=== PATIENT | female | born 1930 | race Caucasian/White ===

== ENCOUNTER 2017-04-09 10:41 | Emergency (ER) | payer OTHER ==
[2017-04-09 11:01] VITALS: BP 146/80; PULSE 68; RESP 18; TEMP 98.4; O2SAT 94
[2017-04-09] MEDS ORDERED: HYDROCODONE/APAP 5/325 TAB PO ONE (11:33)
--- NOTE | 2017-04-09 12:15 | EDPHY ---
H & P Time Seen by Provider: 04/09/17 12:12 HPI/ROS: HPI: This is the pleasant 6-year-old female who presents with Chief Complaint: Left rib pain Location: Left lateral rib Quality: Pain Duration: Since this morning, 1-3 hours Signs and Symptoms: No shortness of breath, no chest pain, no wheezing, no loss of consciousness, no head injury, no dizziness Timing: Sudden, worse with lying on the left side as well as taking a deep breath Severity: Moderate Context: This is a pleasant 86-year-old female who uses a walker to aid ambulation. She states that she tripped and fell directly onto her left side onto the floor. Denies hitting her head. Denies loss of consciousness. She reports that she leaving her insulin glucose meter and started to fall out of her hand, so she shifted her weight and lost her balance which essentially caused her fall. Modifying Factors: Comment: ROS: Eyes: No blurred vision Respiratory: No shortness of breath, no cough Cardiovascular: No chest pain Gastrointestinal: No nausea, no vomiting no diarrhea Genitourinary: No dysuria Extremities: No myalgias Neurologic: No weakness, no numbness Skin: No rashes Hematologic: No bruising, no bleeding MEDICAL/SURGICAL HISTORY: Hypertension, macular degeneration, diabetes mellitus. Social History: Retired. Smoking Status: Never smoked Physical Exam: CONSTITUTIONAL: Pleasant elderly white female, awake and alert, no obvious distress HEENT: Atraumatic and normocephalic, PERRL, EOMI. Tympanic membranes clear. . Oropharynx clear, no exudate and moist pink mucosa. Airway patent. No lymphadenopathy. No meningismus. Cardiovascular: Normal S1/S2, regular rate, regular rhythm, without murmur rub or gallop. PULMONARY/CHEST: Symmetrical and left lateral and posterior lower ribs tenderness with palpation; no ecchymosis; no crepitus. Clear to auscultation bilaterally. Good air movement. No accessory muscle usage. Able to take a deep inspiration with minimal pain. ABDOMEN: Soft, nondistended, nontender, no rebound, no guarding, no peritoneal signs, no masses or organomegaly. No CVAT. No ecchymosis. EXTREMITIES: 2/2 pulses, no deformities, no clubbing, no cyanosis or edema. NEUROLOGICAL: no focal neuro deficits. GCS 15. SKIN: Warm and dry, no erythema. no rash. Good capillary refill. Constitutional: Initial Vital Signs Temperature (C) 36.9 C 04/09/17 10:45 Heart Rate 68 04/09/17 10:45 Respiratory Rate 18 04/09/17 10:45 Blood Pressure 146/80 H 04/09/17 10:45 O2 Sat (%) 94 04/09/17 10:45 O2 Delivery Mode Room Air Allergies/Adverse Reactions: No Known Allergies Allergy (Verified 04/09/17 11:01) Home Medications: Medication Instructions Recorded Chlorthalidone [Chlorthalidone 25 25 mg PO 04/09/17 mg (*)] Insulin Regular Human [novoLIN R] 0 unit SQ 04/09/17 Lidocaine 5% [Lidoderm 5% Patch 1 ea TD DAILY PRN #7 patch 04/09/17 (*)] Losartan Potassium [Cozaar 50 mg 100 mg PO 04/09/17 (*)] NPH, HUMAN INSULIN ISOPHANE 100 unit SQ 04/09/17 [NOVOLIN N] Nifedical Xl 04/09/17 oxyCODONE/APAP 5/325 [Percocet 1 - 2 tab PO Q4H PRN #12 tab 04/09/17 5/325 (*)] Medical Decision Making - Diagnostics Imaging Results: Imaging Impressions Ribs w/Chest X-Ray 04/09/17 11:33 Impression: 1. Negative. No discernible acute rib fracture. 2. Old healed minimally deformed left fifth and sixth rib fractures. ED Course/Re-evaluation: Chest x-ray as well as left rib x-ray obtained, oral medication given Fall accidental; mechanical in nature Given [place] with moderate relief of pain. No hypoxia noted upon arrival. No respiratory distress. X-ray my read via PACs does not show any acute rib fracture. Radiology read does show old anterior left 5th and 6th rib fractures that every healed with minimal deformity. No pneumothorax, opacity or effusion. Discussed with daughter and patient obtaining a CT chest as more sensitive for rib fractures. They have politely declined as patient is feeling better and will have close follow-up with primary care. Patient lives with daughter her closely supervised and understands that she is a fall risk as this is a chronic problem. Patient request both lighted derm patch as well as [place] for unrelieved pain. Differential Diagnosis: Fall in the elderly including but not limited to intracranial injury, long bone and pelvic bone fracture, spinal injury, and intrathoracic injury. - Data Points Medications Given: Discontinued Medications Hydrocodone Bitart/Acetaminophen ([place] 5/325) 1 tab PO EDNOW ONE Stop: 04/09/17 11:34 Last Admin: 04/09/17 11:37 Dose: 1 tab Departure - Departure Disposition: Home, Routine, Self-Care Clinical Impression: Contusion of rib on left side Qualifiers: Encounter type: initial encounter Qualified Code(s): S20.212A - Contusion of left front wall of thorax, initial encounter Condition: Good Instructions: Rib Contusion (ED), Rib Fracture (ED) Additional Instructions: X-ray today does not show acute rib fracture. If pain persist please follow-up with primary care provider as a repeat x-ray or CT chest scan may need to be ordered. Referrals: MIESHA VELAZQUEZ [Other] - As per Instructions [facility],. [Clinic] - 2-3 days, call for appt. Prescriptions: Lidocaine 5% [Lidoderm 5% Patch (*)] 1 ea TD DAILY PRN #7 patch PRN Reason: Pain, Moderate oxyCODONE/APAP 5/325 [Percocet 5/325 (*)] 1 - 2 tab PO Q4H PRN #12 tab PRN Reason: Pain, Severe
== END 2017-04-09 13:04 | disposition home or self-care (01) ==
DX: S20.212A Contusion of left front wall of thorax, initial encounter (principal); I10 Essential (primary) hypertension; E11.9 Type 2 diabetes mellitus without complications; Z79.4 Long term (current) use of insulin; W01.0XXA Fall on same level from slipping, tripping and stumbling without subsequent striking against object, initial encounter

== ENCOUNTER 2018-02-14 10:50 | Emergency (ER) | payer OTHER ==
--- NOTE | 2018-02-14 12:00 | EDPHY ---
HPI/HX/ROS/PE/MDM Narrative: CHIEF COMPLAINT: Fall, back pain into both thighs HPI: The patient is an 87 y/o female who is visiting from [place] with her daughter complaining of progressively worsening back pain radiating into both thighs after a fall last Sunday, 6 days ago. She has a history of a prior lumbar compression fracture, though she's unsure at what level. On Sunday, she was pulling a "shredder machine" and lost her balance falling onto her lower back. Since then she's had localized lower back pain that radiates into the lateral aspect of both thighs. Her back pain is slightly worse on the right side and "goes down into my pelvis too." Pain is aggravated by sitting up and moving. Lifting either leg exacerbates the pain along the lateral sides of her thighs. She took 3 tabs of Advil this morning with minimal relief. Her daughter says she was unable to get out of bed on Sunday, 2 days ago, and had difficulty again yesterday and today so she brought her to the ED for evaluation. The patient denies weakness, paresthesias, urinary symptoms, fever, cough, dyspnea, chest pain, recent illness, or any other trauma. REVIEW OF SYSTEMS: Aside from elements discussed in the HPI, a comprehensive 10-point review of systems was reviewed and is negative. PMH: Diabetes, hypertension, lumbar compression fracture, hearing loss (R ear best with hearing aid), macular degeneration SOCIAL HISTORY: Daughter at bedside. Lives in [place], but visiting here for the month, drove out over the weekend. PHYSICAL EXAM: General:Patient is alert, in no acute distress. ENT:Eyes are normal to inspection. ENT inspection normal. Neck: Normal inspection. Full range of motion. Respiratory:No respiratory distress. Breath sounds normal bilaterally. Cardiovascular: Regular rate and rhythm. Strong peripheral pulses. Normal cap refill. Abdomen:The abdomen is nontender to palpation. There are no peritoneal signs. Pelvis: Stable Back: Normal to inspection. Midline lumbar and bilateral flank tenderness. Skin: Normal color. No rash. Warm and dry. Extremities: Normal appearance. Full range of motion. Neuro: Oriented x3. Normal motor function. Normal sensory function. ED Course: This is an 87 y/o female with a prior lumbar compression fracture who presents with a 6-day history of progressive lumbar pain radiating into both thighs secondary to what she describes as a mechanical fall last week. She has lumbar tenderness and bilateral flank tenderness on exam. She is neurovascularly intact and has a stable pelvis. Plan for pelvis and lumbar x-rays. X-rays show T12 and L3 compression fractures, but it is unclear if these are old or new. The patient's daughter volunteered to call her primary doctor to determine what findings were present on most recent back films. They apparently refused to give this information and asked that the hospital call to obtain them. I directed our sr technical sales consultant to fax over a request for information. We have waited several hours but have still not received this information. 1500 -I had an extensive discussion with the patient and her daughter regarding options, which include CT and admission to the hospital for pain control and further workup, vs. discharge home with referral to laboratory specialist. They have chosen the latter. They understand I am unable to rule out serious injury without further testing. We discussed strict return precautions. - Data Points Imaging Results: Imaging Impressions Lumbar Spine X-Ray 02/14/18 11:58 Impression: 1. Progressive compression of T12. 2. Mild L3 compression. Recommendation: Correlation with the level of symptoms is suggested. If it is important to assess the acuity of the lumbar fractures, then recommend MRI without contrast. If the patient may be a candidate for kyphoplasty, then recommend consultation with interventional radiology (Dr. Sanabria [phone], Dr. Espitia [phone]) 2. AP Pelvis History: Pain post fall Comparison: 05/12/2012 Findings: A left femoral nail is in stable position. There is an old possibly ununited vertical fracture coursing through the lateral portion of the left inferior pubic ramus. No obvious acute pelvic ring fracture is identified. There is dense atherosclerotic vascular calcification. Mild malalignment of the pubic symphysis is stable. The hip joints and SI joints remain normally aligned. Impression: Nothing acute identified. Pelvis X-Ray 02/14/18 11:58 Impression: 1. Progressive compression of T12. 2. Mild L3 compression. Recommendation: Correlation with the level of symptoms is suggested. If it is important to assess the acuity of the lumbar fractures, then recommend MRI without contrast. If the patient may be a candidate for kyphoplasty, then recommend consultation with interventional radiology (Dr. Sanabria [phone], Dr. Espitia [phone]) 2. AP Pelvis History: Pain post fall Comparison: 05/12/2012 Findings: A left femoral nail is in stable position. There is an old possibly ununited vertical fracture coursing through the lateral portion of the left inferior pubic ramus. No obvious acute pelvic ring fracture is identified. There is dense atherosclerotic vascular calcification. Mild malalignment of the pubic symphysis is stable. The hip joints and SI joints remain normally aligned. Impression: Nothing acute identified. Imaging: Discussed imaging studies w/ call center director Radiologist, I viewed and interpreted images myself General Time Seen by Provider: 02/14/18 11:46 Initial Vital Signs: Initial Vital Signs Temperature (C) 37.3 C 02/14/18 11:10 Heart Rate 79 02/14/18 11:10 Respiratory Rate 16 02/14/18 11:10 Blood Pressure 198/81 H 02/14/18 11:10 O2 Sat (%) 91 L 02/14/18 11:10 O2 Delivery Mode Room Air Allergies/Adverse Reactions: No Known Allergies Allergy (Verified 02/14/18 11:08) Home Medications: Medication Instructions Recorded Chlorthalidone [Chlorthalidone 25 25 mg PO 04/09/17 mg (*)] Insulin Regular Human [novoLIN R] 0 unit SQ 04/09/17 Losartan Potassium [Cozaar 50 mg 100 mg PO 04/09/17 (*)] NPH, HUMAN INSULIN ISOPHANE 100 unit SQ 04/09/17 [NOVOLIN N] Atorvastatin Calcium 02/14/18 Metoprolol Tartrate 02/14/18 oxyCODONE/APAP 5/325 [Percocet 1 - 2 tab PO Q6H PRN #20 tab 02/14/18 5/325 (*)] Departure - Departure Disposition: Home, Routine, Self-Care Clinical Impression: Back pain Condition: Good Instructions: Back Pain (ED) Additional Instructions: Followup with a laboratory specialist within one week. Return to the emergency department for severe pain, fever, numbness, difficulty walking, change in location or nature of pain or other concerns. Use ibuprofen and Tylenol as directed. Report Scribed for: Truong Benavides Report Scribed by: Deborah Brown Date of Report: 02/14/18 Time of Report: 12:00 Physician Review and Approval Statement: Portions of this note were transcribed by an ED scribe. I personally performed the history, physical exam, and medical decision making; and confirm the accuracy of the information in the transcribed note.
[2018-02-14 15:25] VITALS: BP 144/85
== END 2018-02-14 15:42 | disposition home or self-care (01) ==
DX: S39.92XA Unspecified injury of lower back, initial encounter (principal); I10 Essential (primary) hypertension; E11.9 Type 2 diabetes mellitus without complications; Z79.4 Long term (current) use of insulin; W18.39XA Other fall on same level, initial encounter; Y99.8 Other external cause status; Y93.89 Activity, other specified